=== PATIENT | female | born 1970 | race Caucasian/White ===

== ENCOUNTER 2018-01-11 20:58 | Emergency (ER) | payer MEDICAID ==
[2018-01-11 20:59] VITALS: BMI 25.7
[2018-01-11 21:11] VITALS: TEMP 98.2
--- NOTE | 2018-01-11 21:22 | ED PDOC ---
Arrival/HPI - General Chief Complaint: Substance Abuse Time Seen by Provider: 01/11/18 21:06 Historian: Patient - History of Present Illness Narrative History of Present Illness (Text): you were treated in the ED today for admitted recreational heroin use and heart burn like sensation and otherwise without any head injury/neck pain/nausea/ vomiting/headache/dizziness/difficulty breathing/chest pain/abdomen pain/ numbness/tingling/loss of limb function/pain with urination/thoughts to harm yourself or others or hallucinations. 01/11/18 21:26 Time/Duration: 1-3 hours Symptom Onset: Gradual Symptom Course: Improving Quality: Other (no pain) Activities at Onset: Rest Context: Sitting Past Medical History - Provider Review Nursing Documentation Reviewed: Yes - Travel History Have you recently traveled outside [place] w/in the past 3 mons?: No - Infectious Disease Hx of Infectious Diseases: None - Tetanus Immunization Tetanus Immunization: Unknown - Pulmonary Hx Chronic Obstructive Pulmonary Disease (COPD): Yes - Endocrine/Metabolic Hx Hyperthyroidism: Yes - Gastrointestinal Hx Gastroesophageal Reflux: Yes - Psychiatric Hx Depression: No Hx Emotional Abuse: No Hx Physical Abuse: No Hx Substance Use: Yes - Surgical History Hx Cholecystectomy: Yes - Suicidal Assessment Feels Threatened In Home Enviroment: No Family/Social History - Physician Review Nursing Documentation Reviewed: Yes Family/Social History: No Known Family HX Smoking Status: Heavy Smoker > 10 Cigarettes Daily Hx Alcohol Use: No Hx Substance Use: Yes Substance used: Heroine Amount: 5 Hx Substance Use Treatment: Yes Allergies/Home Meds Allergies/Adverse Reactions: Allergies No Known Allergies Allergy (Verified 03/14/13 23:47) Review of Systems - Review of Systems Constitutional: Normal Eyes: Normal ENT: Normal Respiratory: Normal Cardiovascular: Normal Gastrointestinal: Normal Genitourinary Female: Normal Musculoskeletal: Normal Skin: Normal Neurological: Normal Endocrine: Normal Hemo/Lymphatic: Normal Psychiatric: Normal Physical Exam Vital Signs Reviewed: Yes Vital Signs Temp Pulse Resp BP Pulse Ox 01/12/18 00:06 91 H 18 122/78 99 01/11/18 21:07 98.2 F 82 16 115/61 91 L Temperature: Afebrile Blood Pressure: Normal Pulse: Regular Respiratory Rate: Normal Appearance: Positive for: Well-Appearing, Non-Toxic, Comfortable Pain Distress: None Mental Status: Positive for: Alert and Oriented X 3 - Systems Exam Head: Present: Atraumatic, Normocephalic Pupils: Present: PERRL Extroacular Muscles: Present: EOMI Conjunctiva: Present: Normal Ears: Present: Normal Mouth: Present: Moist Mucous Membranes Pharnyx: Present: Normal Nose (External): Present: Atraumatic Nose (Internal): Present: Normal Inspection, Septal Hematoma Neck: Present: Other (no c-t-l spinal or paraspinal tenderness) Respiratory/Chest: Present: Clear to Auscultation, Good Air Exchange Cardiovascular: Present: Regular Rate and Rhythm Abdomen: No: Tenderness, Distention, Normal Bowel Sounds, Peritoneal Signs, Rebound, Guarding, McBurney's Point Tender, Rovsing's Sign Present, Hernias, Feeding Tubes, Ostomy Tubes, Mass/Organomegaly, Scars, Other Back: Present: Normal Inspection Upper Extremity: Present: Normal Inspection Lower Extremity: Present: Normal Inspection Neurological: Present: GCS=15, CN II-XII Intact, Speech Normal, Motor Func Grossly Intact Skin: Present: Warm, Normal Color Psychiatric: Present: Alert, Oriented x 3, Normal Insight, Normal Concentration Medical Decision Making ED Course and Treatment: you were treated in the ED today for admitted recreational heroin use and heart burn like sensation and otherwise without any head injury/neck pain/nausea/ vomiting/headache/dizziness/difficulty breathing/chest pain/abdomen pain/ numbness/tingling/loss of limb function/pain with urination/thoughts to harm yourself or others or hallucinations/travel/prior blood clots/prior cancer/ hormonal use. You were otherwise breathing easily, pink moist lips, talking, good strength/sensation, alert/oriented, walking easily, clear lungs, no abdomen tenderness, no fever temp 98.2, stable heart rate 82, stable breathing rate 16, stable oxygen level 91% room air, stable blood pressure 115/61 which we recommend repeat in 2-3 days primary care office to determine further treatment, you have blood tests no infection count 10, stable blood level hemoglobin 12/platelets 391, stable chemistry, except for mildly low potassium 3.4 and replaced, mildly high AST 43, heart blood test negative, urine test unclear sign of infection, test negative less than 2.39, urine drug screen opiate positive, tylenol level negative, aspirin level negative, alcohol level negative, radiology chest xray mild markings, ECG sinus rhythm, protonix, intravenous fluids, observation done in the ED with improvement, sober status, had a long discussion to stay in the hospital for further observation/care but you refused and cautioned for complications/, counselled to stop using drugs and you wanted to go home. 1. recommend if cough/sputum start azithromycin as directed for bronchitis/early pneumonia infection control. 2. Recommend follow-up primary care 1 days to review symptoms, get final urine culture report to determine further treatment, referral to detoxification clinic to stop using heroin, referral to gastroenterology clinic for elevated AST 43 to ensure no complications, referral to urology clinic for protein/blood/ ketones in urine to ensure no complications. 4. If any worsening pain, fever, chills, nausea, vomiting, difficulty breathing, numbness, loss of limb function , pain with urination or any medical condition then return to the ED. 01/12/18 01:10 Reassessment Condition: Re-examined, Improved - Lab Interpretations Lab Results: 01/11/18 21:40 01/11/18 21:40 Lab Results 01/11/18 23:55: Urine Opiates Screen Positive H, Urine Methadone Screen Negative , Ur Barbiturates Screen Negative, Ur Phencyclidine Scrn Negative, Ur Amphetamines Screen Negative, U Benzodiazepines Scrn Negative, U Oth Cocaine Metabols Negative, U Cannabinoids Screen Negative 01/11/18 23:55: Urine Color Yellow, Urine Appearance Sl cloudy, Urine pH 6.0, Ur Specific Harrells 1.025, Urine Protein 30 H, Urine Glucose (UA) Negative, Urine Ketones Trace H, Urine Blood Large H, Urine Nitrate Negative, Urine Bilirubin Negative, Urine Urobilinogen 0.2, Ur Leukocyte Esterase Trace H, Urine RBC 5 - 10, Urine WBC 1 - 3, Ur Epithelial Cells 1 - 3, Urine Bacteria Few , Hyaline Casts 0 - 2 01/11/18 21:40: Beta HCG, Quant < 2.39 01/11/18 21:40: Alcohol, Quantitative < 10 01/11/18 21:40: Salicylates < 1 L, Acetaminophen < 10.0 L 01/11/18 21:40: Sodium 139, Potassium 3.4 L, Chloride 99, Carbon Dioxide 30, Anion Gap 13, BUN 5 L, Creatinine 0.9, Est GFR ( Amer) > 60, Est GFR (Non -Af Amer) > 60, Random Glucose 107, Calcium 8.5, Magnesium 1.9, Total Bilirubin 0.3, AST 43 H, ALT 38, Alkaline Phosphatase 111, Lactate Dehydrogenase 687, Total Creatine Kinase 114, Troponin I < 0.01, Total Protein 7.2, Albumin 4.0, Globulin 3.2, Albumin/Globulin Ratio 1.3 01/11/18 21:40: PT 10.6, INR 0.93, APTT 29.7 01/11/18 21:40: WBC 10.5, RBC 4.90, Hgb 12.4, Hct 36.9, MCV 75.3 L, MCH 25.3, MCHC 33.6, RDW 15.4 H, Plt Count 391, MPV 9.2, Gran % 66.7, Lymph % (Auto) 26.5 , Converse % (Auto) 4.7, Eos % (Auto) 1.9, Baso % (Auto) 0.2, Gran # 7.01 H, Lymph # (Auto) 2.8, Converse # (Auto) 0.5, Eos # (Auto) 0.2, Baso # (Auto) 0.02 I have reviewed the lab results: Yes - RAD Interpretation Radiology Orders: 01/11/18 21:16 CHEST PORTABLE [RAD] Stat Industrial Engineer: ED Physician (cxr mild markings) - EKG Interpretation Interpreted by ED Physician: Yes (SR ) Type: 12 lead EKG Comparison: Similar to previous EKG (06/13/13) - Medication Orders Current Medication Orders: Discontinued Medications Sodium Chloride (Sodium Chloride 0.9%) 1,000 mls @ 999 mls/hr IV .Q1H1M STA Stop: 01/11/18 22:26 Last Admin: 01/11/18 21:50 Dose: 999 mls/hr eMAR Start Stop Document 01/11/18 21:50 RD (Rec: 01/11/18 21:50 RD [id number]) Intravenous Solution Start Date 01/11/18 Start Time 21:50 End Date 01/11/18 End time 22:50 Total Infusion Time 60 Pantoprazole Sodium (Protonix Inj) 40 mg IVP STAT STA Stop: 01/11/18 21:27 Last Admin: 01/11/18 21:45 Dose: 40 mg IVP Administration Document 01/11/18 21:45 RD (Rec: 01/11/18 21:46 RD [id number]) Charges for Administration # of IVP Administrations 1 Potassium Chloride (K-Dur 20 Meq Er Tab) 40 meq PO STAT STA Stop: 01/11/18 22:26 Last Admin: 01/11/18 23:30 Dose: 40 meq Disposition/Present on Arrival - Present on Arrival Any Indicators Present on Arrival: No History of DVT/PE: No History of Uncontrolled Diabetes: No Urinary Catheter: No History of Decub. Ulcer: No History Surgical Site Infection Following: None - Disposition Have Diagnosis and Disposition been Completed?: Yes Diagnosis: Heroin abuse Disposition: AGAINST MEDICAL ADVICE Disposition Time: 01:14 Patient Plan: Discharge Patient Problems: Current Active Problems Problem Status Onset Heroin abuse Acute Condition: IMPROVED Discharge Instructions (ExitCare): Drug Abuse and Drug Addiction (DC), Opioid Use Disorder Additional Instructions: you were treated in the ED today for admitted recreational heroin use and heart burn like sensation and otherwise without any head injury/neck pain/nausea/ vomiting/headache/dizziness/difficulty breathing/chest pain/abdomen pain/ numbness/tingling/loss of limb function/pain with urination/thoughts to harm yourself or others or hallucinations/travel/prior blood clots/prior cancer/ hormonal use. You were otherwise breathing easily, pink moist lips, talking, good strength/sensation, alert/oriented, walking easily, clear lungs, no abdomen tenderness, no fever temp 98.2, stable heart rate 82, stable breathing rate 16, stable oxygen level 91% room air, stable blood pressure 115/61 which we recommend repeat in 2-3 days primary care office to determine further treatment, you have blood tests no infection count 10, stable blood level hemoglobin 12/platelets 391, stable chemistry, except for mildly low potassium 3.4 and replaced, mildly high AST 43, heart blood test negative, urine test unclear sign of infection, test negative less than 2.39, urine drug screen opiate positive, tylenol level negative, aspirin level negative, alcohol level negative, radiology chest xray mild markings, ECG sinus rhythm, protonix, intravenous fluids, observation done in the ED with improvement, sober status, had a long discussion to stay in the hospital for further observation/care but you refused and cautioned for complications/, counselled to stop using drugs and you wanted to go home. 1. recommend if cough/sputum start azithromycin as directed for bronchitis/early pneumonia infection control. 2. Recommend follow-up primary care 1 days to review symptoms, get final urine culture report to determine further treatment, referral to detoxification clinic to stop using heroin, referral to gastroenterology clinic for elevated AST 43 to ensure no complications, referral to urology clinic for protein/blood/ ketones in urine to ensure no complications. 4. If any worsening pain, fever, chills, nausea, vomiting, difficulty breathing, numbness, loss of limb function , pain with urination or any medical condition then return to the ED. Prescriptions: Azithromycin [Z-Brando] 250 mg PO DAILY 5 Days #6 tab Referrals: PCP,NO [Primary Care Provider] - Follow up with primary Forms: [facility] [facility] (Romanian)
[2018-01-11] MEDS ORDERED: Sodium Chloride 0.9% 1,000 ML IV STA (21:26)
[2018-01-11 21:54] LABS: BASO # 0.02 K/mm3 (0.0-2.0); BASO % 0.2 % (0.0-3.0); EOS # 0.2 (0.0-0.7); EOS % 1.9 % (1.5-5.0); GRAN # 7.01 (1.4-6.5); GRAN % 66.7 % (50.0-68.0); HEMOGLOBIN 12.4 g/dL (12.0-16.0); LYMPH # 2.8 (1.2-3.4); LYMPH % 26.5 % (22.0-35.0); MEAN CELL VOLUME 75.3 fl (80.0-105.0); MEAN CORPUSCULAR HEMOGLOBIN 25.3 pg (25.0-35.0); MEAN CORPUSCULAR HGB CONC 33.6 g/dl (31.0-37.0); MEAN PLATELET VOLUME 9.2 fl (7.0-11.0); MONO # 0.5 (0.1-0.6); MONO % 4.7 % (1.0-6.0); RBC 4.9 10^6/uL (3.5-6.1); RED CELL DISTRIBUTION WIDTH 15.4 % (11.5-14.5); WHITE BLOOD COUNT 10.5 10^3/ul (4.5-11.0)
[2018-01-11 22:02] LABS: INR 0.93 (0.93-1.08); PARTIAL THROMBOPLASTIN TIME 29.7 Seconds (25.1-36.5); PROTHROMBIN TIME 10.6 SECONDS (9.4-12.5)
[2018-01-11 22:06] LABS: ALB/GLOB RATIO 1.3 (1.1-1.8); ALT/SGPT 38 U/L (7-56); AST/SGOT 43 U/L (14-36); BLOOD UREA NITROGEN 5 mg/dL (7-21); CALCIUM 8.5 mg/dL (8.4-10.5); GFR AFRICAN-AMERICAN > 60; GFR NON-AFRICAN AMERICAN > 60
[2018-01-11 22:07] LABS: ACETAMINOPHEN < 10.0 ug/ml (10.0-20.0); SALICYLATE < 1 mg/dL (2.0-20.0)
[2018-01-11 22:18] LABS: TROPONIN I < 0.01 ng/mL
[2018-01-11] MEDS ORDERED: Potassium Chloride 20 mEq ER Tab PO STA (22:25)
[2018-01-12 00:27] LABS: URINE APPEARANCE SL CLOUDY (CLEAR); URINE BILIRUBIN NEGATIVE (NEGATIVE); URINE BLOOD LARGE (NEGATIVE); URINE COLOR YELLOW (YELLOW); URINE GLUCOSE (UA) NEGATIVE (NEGATIVE); URINE LEUKOCYTE ESTERASE TRACE Leu/uL (NEGATIVE); URINE PROTEIN 30 mg/dL (<30 mg/dL); URINE UROBILINOGEN 0.2 E.U./dL (<1 E.U./dL)
[2018-01-12 00:37] LABS: PHENCYCLIDINE, UR NEGATIVE (NEGATIVE)
[2018-01-12 00:40] LABS: URINE BACTERIA FEW (NEG); URINE HYALINE CAST 0 - 2 /hpf
[2018-01-12 00:43] LABS: BARBITURATES, UR NEGATIVE (NEGATIVE); BENZODIAZEPINES, UR NEGATIVE (NEGATIVE); OPIATES, UR POSITIVE (NEGATIVE)
[2018-01-12 01:26] VITALS: BP 118/67; PULSE 89; RESP 17; O2SAT 93
--- NOTE | 2018-01-12 08:23 | RAD ---
HISTORY: 47yoF, overdose COMPARISON: No prior. FINDINGS: LUNGS: The lungs are well inflated and clear. PLEURA: No significant pleural effusion identified, no pneumothorax apparent. CARDIOVASCULAR: Normal. OSSEOUS STRUCTURES: No significant abnormalities. VISUALIZED UPPER ABDOMEN: Normal. OTHER FINDINGS: None. IMPRESSION: No acute findings.
--- NOTE | 2018-01-12 09:13 | CARD ---
APPROVED REPORT EKG Measurement Heart [id number] NM 130P56 [id number] <Conclusion> Sinus rhythm Nonspecific ST and T wave abnormality, increased in precordial leads since 06/13/13 ECG
== END 2018-01-12 01:27 | disposition left against medical advice (07) ==
LOC: ED 20:58
DX: F11.10 Opioid abuse, uncomplicated (principal); F17.210 Nicotine dependence, cigarettes, uncomplicated; E05.90 Thyrotoxicosis, unspecified without thyrotoxic crisis or storm; J44.9 Chronic obstructive pulmonary disease, unspecified
CPT/HCPCS: 71045; 80053; 80320; 80324; 80329; 80345; 80346; 80349; 80353; 80358; 80361; 81001; 82550; 83615; 83735; 83992; 84484; 84702; 85025; 85610; 85730; 87086; 93005; 96361; 96374; 99284; C9113; J7040

== ENCOUNTER 2018-07-20 18:43 | Emergency (ER) | payer MEDICAID ==
[2018-07-20 18:46] VITALS: BMI 25.7
--- NOTE | 2018-07-20 18:54 | ED PDOC ---
Arrival/HPI - General Chief Complaint: Substance Abuse Time Seen by Provider: 07/20/18 18:50 Historian: Patient, EMS - History of Present Illness Narrative History of Present Illness (Text): 07/20/18 18:40 47 year old female, with past history of opiod abuse and heroin abuse, presents to the Emergency department via EMS s/p heroin overdose approximately 30 minutes prior to arrival. Upon arrival to the Emergency department, patient was given narcan with spontaneous return to baseline. Patient admits to snorting heroin today in the bus with no suicidal intention. Patient denies any suicidal ideation or homicidal ideation. Patient denies any somatic complaints. Patient denies any fevers, chills, headache, dizziness, chest pain, shortness of breath, dyspnea on exertion, cough, abdominal pain, nausea, vomiting, diarrhea, back pain, neck pain, or any other complaint. Time/Duration: Prior to Arrival Symptom Onset: Gradual Symptom Course: Resolved Activities at Onset: Light Context: Other (Bus) Past Medical History - Provider Review Nursing Documentation Reviewed: Yes - Infectious Disease Hx of Infectious Diseases: None - Tetanus Immunization Tetanus Immunization: Unknown - Pulmonary Hx Chronic Obstructive Pulmonary Disease (COPD): Yes - Endocrine/Metabolic Hx Hyperthyroidism: Yes - Gastrointestinal Hx Gastroesophageal Reflux: Yes - Psychiatric Hx Depression: No Hx Emotional Abuse: No Hx Physical Abuse: No Hx Substance Use: Yes - Surgical History Hx Cholecystectomy: Yes - Suicidal Assessment Feels Threatened In Home Enviroment: No Family/Social History - Physician Review Nursing Documentation Reviewed: Yes Family/Social History: Unknown Family HX Smoking Status: Heavy Smoker > 10 Cigarettes Daily Hx Alcohol Use: No Hx Substance Use: Yes Substance used: Heroine Amount: 5 Hx Substance Use Treatment: Yes Allergies/Home Meds Allergies/Adverse Reactions: Allergies No Known Allergies Allergy (Verified 03/14/13 23:47) Review of Systems - Physician Review All systems were reviewed & negative as marked: Yes - Review of Systems Constitutional: absent: Fevers Respiratory: absent: SOB, Cough Cardiovascular: absent: Chest Pain Gastrointestinal: absent: Abdominal Pain, Diarrhea, Nausea, Vomiting Musculoskeletal: absent: Back Pain, Neck Pain Neurological: absent: Headache, Dizziness Psychiatric: absent: Suicidal Ideation Physical Exam Temperature: Afebrile Blood Pressure: Normal Pulse: Regular Respiratory Rate: Normal Appearance: Positive for: Well-Appearing, Non-Toxic, Comfortable Pain Distress: None Mental Status: Positive for: Alert and Oriented X 3 - Systems Exam Head: Present: Atraumatic, Normocephalic Pupils: Present: PERRL Extroacular Muscles: Present: EOMI Conjunctiva: Present: Normal Ears: Present: Normal Mouth: Present: Moist Mucous Membranes, Normal Lips (residual white powder on right lip) Pharnyx: Present: Normal. No: ERYTHEMA, EXUDATE Nose (External): Present: Atraumatic Nose (Internal): Present: Normal Inspection. No: Septal Hematoma Neck: Present: Normal Range of Motion. No: Meningeal Signs, MIDLINE TENDERNESS Respiratory/Chest: Present: Clear to Auscultation, Good Air Exchange. No: Respiratory Distress, Accessory Muscle Use Cardiovascular: Present: Regular Rate and Rhythm, Normal S1, S2. No: Murmurs Abdomen: No: Tenderness, Distention, Peritoneal Signs Back: Present: Normal Inspection Upper Extremity: Present: Normal Inspection, Normal ROM, NORMAL PULSES. No: Cyanosis, Edema, Tenderness Lower Extremity: Present: Normal Inspection. No: Edema, Cyanosis Neurological: Present: GCS=15, CN II-XII Intact, Speech Normal, Motor Func Grossly Intact, Normal Sensory Function, Normal Cerebellar Funct, Gait Normal Skin: Present: Warm, Dry, Normal Color. No: Rashes Psychiatric: Present: Alert, Oriented x 3, Normal Insight, Normal Concentration, Normal Affect Medical Decision Making ED Course and Treatment: 07/20/18 18:45 Impression: 47 year old female presents to the Emergency department s/p heroin overdose. Differential Diagnosis included but are not limited to: Heroin overdose Plan: -- Narcan -- Reassess and disposition Prior Visits: Notes and results from previous visits were reviewed. Progress Notes: EKG: Ordered, reviewed, and independently interpreted the EKG. Rate : 96 BPM Rhythm : NSR Interpretation : No STEMI. 07/20/18 20:17 Pt remains w/ normal neuro exam, no signs of trauma, stable gait, in NAD with VSS clear for d/c home - EKG Interpretation Interpreted by ED Physician: Yes Type: 12 lead EKG - Scribe Statement The provider has reviewed the documentation as recorded by the Scribe Phani Daley. All medical record entries made by the Scribe were at my direction and personally dictated by me. I have reviewed the chart and agree that the record accurately reflects my personal performance of the history, physical exam, medical decision making, and the department course for this patient. I have also personally directed, reviewed, and agree with the discharge instructions and disposition. Disposition/Present on Arrival - Present on Arrival Any Indicators Present on Arrival: No History of DVT/PE: No History of Uncontrolled Diabetes: No Urinary Catheter: No History Surgical Site Infection Following: None - Disposition Have Diagnosis and Disposition been Completed?: Yes Diagnosis: Opiate overdose Disposition: HOME/ ROUTINE Disposition Time: 20:18 Patient Problems: Current Active Problems Problem Status Onset Opiate overdose Acute Condition: GOOD Discharge Instructions (ExitCare): Narcotic Overdose (DC) Additional Instructions: Stop using Heroin. It is bad for you and can be lethal. SOLOMON LAGUNAS, thank you for letting us take care of you today. Your provider was Kemar Antunez and you were treated for overdose. The emergency medical care you received today was directed at your acute symptoms. If you were prescribed any medication, please fill it and take as directed. It may take several days for your symptoms to resolve. Return to the Emergency Department if your symptoms worsen, do not improve, or if you have any other problems. Please contact your doctor or call one of the physicians/clinics you have been referred to that are listed on the Patient Visit Information form that is included in your discharge packet. Bring any paperwork you were given at discharge with you along with any medications you are taking to your follow up visit. Our treatment cannot replace ongoing medical care by a primary care provider outside of the emergency department. Thank you for allowing the [facility] team to be part of your care today. If you had an X-Ray or CT scan: A Radiologist will review the ED reading if any change in treatment is needed we will contact you. If you had a blood, urine, or wound culture: It will take several days for the results, if any change in treatment is needed we will contact you. If you had an STI test: It will take 48 hours for the results. Please call after 1 week if you have not heard back. Referrals: Yasmine Seals MD [Medical Doctor] - Follow up with primary [facility] [Outside] - Follow up with primary [facility] [Outside] - Follow up with primary Forms: [employer] (Bermudian)
[2018-07-20 19:42] VITALS: RESP 18; TEMP 98.2
[2018-07-21 03:52] VITALS: BP 115/70; PULSE 74; O2SAT 100
--- NOTE | 2018-07-21 10:13 | CARD ---
APPROVED REPORT Date of service: 07/20/2018 EKG Measurement Heart [id number] <Conclusion> Normal sinus rhythm Left ventricular hypertrophy STTW changes c/w ischemia No change
== END 2018-07-20 20:30 | disposition home or self-care (01) ==
LOC: ED 18:43
DX: T40.1X1A Poisoning by heroin, accidental (unintentional), initial encounter (principal); Y92.811 Bus as the place of occurrence of the external cause; E05.90 Thyrotoxicosis, unspecified without thyrotoxic crisis or storm; F17.210 Nicotine dependence, cigarettes, uncomplicated; J44.9 Chronic obstructive pulmonary disease, unspecified

== ENCOUNTER 2018-08-30 22:42 | Emergency (ER) | payer MEDICAID ==
[2018-08-30 22:50] VITALS: BMI 34.0
[2018-08-30 23:07] VITALS: BP 122/77; PULSE 71; RESP 18; TEMP 98.7; O2SAT 97
--- NOTE | 2018-08-30 23:09 | ED PDOC ---
Arrival/HPI - General Chief Complaint: Substance Abuse Time Seen by Provider: 08/30/18 22:51 Historian: Patient - History of Present Illness Narrative History of Present Illness (Text): 08/30/18 23:08 Anna Valdes is a 47 year old female, whose past medical history includes substance abuse and hypertension, who presents to the Emergency department brought in by EMS status post [place]. Patient admits to snorting heroin this evening and daughter states patient regularly uses heroin recreationally. Patient also reports lower back pain, denies any trauma or fall. Patient denies any chest pain, shortness of breath, nausea, vomiting, or any other complaints. Symptom Onset: Gradual Symptom Course: Unchanged Activities at Onset: Light Context: Home Past Medical History - Provider Review Nursing Documentation Reviewed: Yes - Infectious Disease Hx of Infectious Diseases: None - Tetanus Immunization Tetanus Immunization: Unknown - Cardiac Hx Cardiac Disorders: No - Pulmonary Hx Chronic Obstructive Pulmonary Disease (COPD): Yes - Endocrine/Metabolic Hx Hyperthyroidism: Yes - Gastrointestinal Hx Gastroesophageal Reflux: Yes - Psychiatric Hx Depression: No Hx Emotional Abuse: No Hx Physical Abuse: No Hx Substance Use: Yes - Surgical History Hx Cholecystectomy: Yes - Anesthesia Hx Anesthesia: No - Suicidal Assessment Feels Threatened In Home Enviroment: No Family/Social History - Physician Review Nursing Documentation Reviewed: Yes Family/Social History: Unknown Family HX Smoking Status: Heavy Smoker > 10 Cigarettes Daily Hx Alcohol Use: No Hx Substance Use: Yes Substance used: Heroine Amount: 5 Hx Substance Use Treatment: Yes Allergies/Home Meds Allergies/Adverse Reactions: Allergies No Known Allergies Allergy (Verified 03/14/13 23:47) Review of Systems - Physician Review All systems were reviewed & negative as marked: Yes - Review of Systems Constitutional: Normal. absent: Fevers Eyes: Normal ENT: Normal Respiratory: Normal. absent: SOB, Cough Cardiovascular: Normal. absent: Chest Pain Gastrointestinal: Normal. absent: Abdominal Pain, Diarrhea, Nausea, Vomiting Genitourinary Female: Normal. absent: Dysuria, Frequency, Hematuria, Urine Output Changes Musculoskeletal: Back Pain. absent: Neck Pain Skin: Normal. absent: Rash Neurological: Normal. absent: Headache, Dizziness Endocrine: Normal Hemo/Lymphatic: Normal Psychiatric: Other (+heroin overdose) Physical Exam Vital Signs Reviewed: Yes Vital Signs Temp Pulse Resp BP Pulse Ox 08/30/18 23:06 98.7 F 71 18 122/77 97 Temperature: Afebrile Blood Pressure: Normal Pulse: Regular Respiratory Rate: Normal Appearance: Positive for: Well-Appearing, Non-Toxic, Comfortable Pain Distress: None Mental Status: Positive for: other (Drowsy but arousable) - Systems Exam Head: Present: Atraumatic, Normocephalic Pupils: Present: PERRL Extroacular Muscles: Present: EOMI Conjunctiva: Present: Normal Mouth: Present: Moist Mucous Membranes Neck: Present: Normal Range of Motion Respiratory/Chest: Present: Clear to Auscultation, Good Air Exchange. No: Respiratory Distress, Accessory Muscle Use Cardiovascular: Present: Regular Rate and Rhythm, Normal S1, S2. No: Murmurs Abdomen: No: Tenderness, Distention, Peritoneal Signs Back: Present: Normal Inspection Upper Extremity: Present: Normal Inspection. No: Cyanosis, Edema Lower Extremity: Present: Normal Inspection. No: Edema Neurological: Present: GCS=15, CN II-XII Intact, Speech Normal Skin: Present: Warm, Dry, Normal Color. No: Rashes Psychiatric: No: Alert (Drowsy but arousable) Medical Decision Making ED Course and Treatment: 08/30/18 23:08 Impression: 47 year old female brought in by EMS status post overdose. Pt complaining of lower back pain, no hx of recent trauma. Plan: -- Labs, alcohol level -- Urine drug screen -- Narcan -- XR Lumbar Spine -- Reassess and disposition Progress Notes: 08/31/18 00:11 Notified by RN, pt eloped from Emergency department. - Lab Interpretations I have reviewed the lab results: Yes - Scribe Statement The provider has reviewed the documentation as recorded by the Enrico Luna Provider Scribe Attestation: All medical record entries made by the Scribe were at my direction and personally dictated by me. I have reviewed the chart and agree that the record accurately reflects my personal performance of the history, physical exam, medical decision making, and the department course for this patient. I have also personally directed, reviewed, and agree with the discharge instructions and disposition. Disposition/Present on Arrival - Present on Arrival Any Indicators Present on Arrival: No History of DVT/PE: No History of Uncontrolled Diabetes: No Urinary Catheter: No History of Decub. Ulcer: No History Surgical Site Infection Following: None - Disposition Have Diagnosis and Disposition been Completed?: Yes Diagnosis: Drug abuse, Back pain Disposition: ELOPEMENT - ER ONLY Disposition Time: 00:15 Condition: STABLE Referrals: Jacinta Manzano DO [Primary Care Provider] - Follow up with primary Forms: T[employer]ril (Omani)
[2018-08-30] MEDS ORDERED: Naloxone 0.4 mg/ml Inj (Adult) IVP STA (23:10)
[2018-08-30] MEDS ORDERED: Naloxone 0.4 mg/ml Inj (Adult) ONE (23:14)
[2018-08-30 23:49] LABS: HEMOGLOBIN 13.7 g/dL (12.0-16.0); MEAN CELL VOLUME 78.3 fl (80.0-105.0); MEAN CORPUSCULAR HGB CONC 34.4 g/dl (31.0-37.0); MEAN PLATELET VOLUME 9.3 fl (7.0-11.0); RBC 5.08 10^6/uL (3.5-6.1); RED CELL DISTRIBUTION WIDTH 15.1 % (11.5-14.5)
[2018-08-30 23:56] LABS: BENZODIAZEPINES, UR NEGATIVE (NEGATIVE)
[2018-08-31 00:01] LABS: ALB/GLOB RATIO 1.2 (1.1-1.8); ALBUMIN 4.1 g/dL (3.0-4.8); ALT/SGPT 23 U/L (7-56); AST/SGOT 43 U/L (14-36); BLOOD UREA NITROGEN 10 mg/dL (7-21); CALCIUM 8.9 mg/dL (8.4-10.5); GFR NON-AFRICAN AMERICAN 59
[2018-08-31 00:18] LABS: BARBITURATES, UR NEGATIVE (NEGATIVE); OPIATES, UR POSITIVE (NEGATIVE); PHENCYCLIDINE, UR NEGATIVE (NEGATIVE)
--- NOTE | 2018-08-31 11:40 | CARD ---
APPROVED REPORT Date of service: 08/30/2018 EKG Measurement Heart [id number] <Conclusion> Normal sinus rhythm Normal Electrocardiogram
== END 2018-08-31 00:23 | disposition left against medical advice (07) ==
LOC: ED 22:42
DX: M54.5 Low back pain (principal); F19.10 Other psychoactive substance abuse, uncomplicated; F17.210 Nicotine dependence, cigarettes, uncomplicated; I10 Essential (primary) hypertension

== ENCOUNTER 2018-09-12 17:19 | Observation (INO) | payer MEDICAID ==
[2018-09-12 17:19] VITALS: BMI 34.0
--- NOTE | 2018-09-12 17:26 | ED PDOC ---
Arrival/HPI - General Historian: Patient, EMS - History of Present Illness Narrative History of Present Illness (Text): 09/12/18 17:26 48 y/o female, pmh including htn, psychiatric including heroine abuse, nkda, c/o heroine intoxication x 1 hour. Pt. was found heroine intoxicated with 2 bags at home, self admitted, found in the bathroom standing, placed her on the chair and the ambulance/police called, gave narcan which she woke up immediately, no fall or trauma except she vomited when she woke up, FS 240s in the ER, no urinary or bowel incontinence or retention, no numbness or tingling, no other medical or psychological complaints. Past Medical History - Provider Review Nursing Documentation Reviewed: Yes - Infectious Disease Hx of Infectious Diseases: None - Tetanus Immunization Tetanus Immunization: Unknown - Cardiac Hx Cardiac Disorders: No - Pulmonary Hx Chronic Obstructive Pulmonary Disease (COPD): Yes - Endocrine/Metabolic Hx Hyperthyroidism: Yes - Gastrointestinal Hx Gastroesophageal Reflux: Yes - Psychiatric Hx Depression: No Hx Emotional Abuse: No Hx Physical Abuse: No Hx Substance Use: Yes - Surgical History Hx Cholecystectomy: Yes - Anesthesia Hx Anesthesia: No - Suicidal Assessment Feels Threatened In Home Enviroment: No Family/Social History - Physician Review Nursing Documentation Reviewed: Yes Family/Social History: Unknown Family HX Smoking Status: Heavy Smoker > 10 Cigarettes Daily Hx Alcohol Use: No Hx Substance Use: Yes Substance used: Heroine Amount: 5 Hx Substance Use Treatment: Yes Allergies/Home Meds Allergies/Adverse Reactions: Allergies No Known Allergies Allergy (Verified 03/14/13 23:47) Home Medications: Home Meds Medication Instructions Recorded Confirmed Clonazepam [Klonopin] 2 mg PO DAILY 09/12/18 09/12/18 DULoxetine [Cymbalta] 60 mg PO DAILY 09/12/18 09/12/18 Ergocalciferol (Vitamin D2) 50,000 unit PO QWK 09/12/18 09/12/18 [Vitamin D2] Gabapentin [Neurontin] 600 mg PO DAILY 09/12/18 09/12/18 Omeprazole 10 mg PO DAILY 09/12/18 09/12/18 amLODIPine [Norvasc] 10 mg PO DAILY 09/12/18 09/12/18 Review of Systems - Review of Systems Constitutional: absent: Fatigue, Fevers Eyes: absent: Vision Changes ENT: absent: Hearing Changes Respiratory: absent: SOB, Cough Cardiovascular: absent: Chest Pain Gastrointestinal: Nausea, Vomiting. absent: Abdominal Pain, Diarrhea Skin: absent: Rash, Pruritis Neurological: absent: Headache, Dizziness Psychiatric: absent: Anxiety, Depression, Suicidal Ideation Physical Exam - Systems Exam Head: Present: Atraumatic, Normocephalic. No: Tenderness, Contusion, Swelling, Ecchymosis, Abrasion, Laceration, Other Pupils: Present: Pinpoint Extroacular Muscles: Present: EOMI Conjunctiva: Present: Normal Ears: Present: Normal, NORMAL TM, Normal Canal Mouth: Present: Moist Mucous Membranes Pharnyx: No: ERYTHEMA, EXUDATE, TONSILS ENLARGED Nose (External): Present: Atraumatic. No: Abrasion Nose (Internal): Present: Normal Inspection, No Active Bleeding. No: Rhinorrhea, Septal Hematoma, Epistaxis Neck: Present: Normal Range of Motion, Trachea Midline. No: MIDLINE TENDERNESS, Paraspinal Tenderness, Lymphadenopathy Respiratory/Chest: Present: Clear to Auscultation, Good Air Exchange. No: Respiratory Distress, Accessory Muscle Use, Wheezes, Decreased Breath Sounds, Rales, Retracting, Rhonchi, Tachypneic, Tender to Palpation Cardiovascular: Present: Regular Rate and Rhythm, Normal S1, S2. No: Murmurs Abdomen: No: Tenderness, Distention, Peritoneal Signs, Rebound, Guarding Back: Present: Normal Inspection. No: CVA Tenderness, Midline Tenderness, Paraspinal Tenderness, Pain with Leg Raise, Decubitus Ulcer Upper Extremity: Present: Normal Inspection, Normal ROM, NORMAL PULSES, Neurovascularly Intact. No: Cyanosis, Edema, Tenderness, Swelling, Deformity Lower Extremity: Present: Normal Inspection, NORMAL PULSES, Normal ROM, Neurovascularly Intact, Capillary Refill < 2 s. No: Edema, Tenderness, Swelling, Deformity Neurological: Present: GCS=15, CN II-XII Intact, Speech Normal, Motor Func Grossly Intact, Memory Normal Skin: Present: Warm, Dry, Normal Color. No: Rashes Psychiatric: Present: Alert, Oriented x 3, Normal Insight, Normal Concentration Medical Decision Making ED Course and Treatment: 09/12/18 17:33 -Labs -EKG -IVF/zofran -Xray/CT -security monitor -Observe and reassess 09/12/18 19:40 -EKG: NSR @ 75 BPM, no ST elevation or depression, no T wave inversion, LVH noted, -Beta hcg is negative for . -CT head No acute intracranial abnormality. -CXR Minimal infiltrate and/or atelectasis at the lung bases. -Labs show no acuter findings except wbc 15.8 -Mag 2.3, normal bun/creatine -CPK within normal limit -Trop is negative -Salicylate/acetaminophen/alcohol: -UA show +UTI, IV rocephine ordered -UDS is +opiate -IV rocephine/azithromcin/clindamycin ordered for Community acquired pneumonia vs. aspiration/UTI, leukocytosis, will admit her. She will need psychiatric evaluation as well for heroine abuse and overdose, ESR/CRP/Procalcitonin orde red. 09/12/18 19:49 -I spoke to the patient about the lab/radiology results and she agreed to be admitted -I spoke to the admitting physician Dr. Thompson/medical service technician, discussed about the labs/radiology result, will come to evaluate and admit the patient. - RAD Interpretation Radiology Orders: CT head: . EXAM: CT Head without Intravenous Contrast. CLINICAL HISTORY: HEAD INJURY TECHNIQUE: Axial computed tomography images of the head/brain without intravenous contrast. 984.00 mGy-cm COMPARISON: None provided. FINDINGS: BRAIN No acute intraparenchymal hemorrhage. No mass lesion. No CT evidence for acute territorial infarct. No midline shift or extra-axial collections. VENTRICLES: No hydrocephalus. ORBITS: The orbits are unremarkable. SINUSES AND MASTOIDS: The paranasal sinuses and mastoid air cells are clear. BONES: No fracture. SOFT TISSUES: Unremarkable. IMPRESSION: No acute intracranial abnormality. Electronically signed on Sep 12, 2018 6:49:34 PM EST by: Damián Kearns M.D., Certified by [employer], Diagnostic Radiology Chest xray: EXAM: CR Chest, 2 View. CLINICAL HISTORY: Cough COMPARISON: None provided. FINDINGS: LUNGS: Minimal infiltrate and/or atelectasis at the lung bases. PLEURAL SPACES: No evidence of pleural effusion or pneumothorax. MEDIASTINUM: The cardiomediastinal silhouette is within normal limits. BONES: No aggressive appearing osseous lesion seen. IMPRESSION: Minimal infiltrate and/or atelectasis at the lung bases. Electronically signed on Sep 12, 2018 7:34:14 PM EST by: Damián Kearns M.D., Certified by [employer], Diagnostic Radiology Scooper: Radiologist - EKG Interpretation EKG Interpretation (Text): 09/12/18 18:01 -EKG: NSR @ 75 BPM, no ST elevation or depression, no T wave inversion, LVH noted, Interpreted by ED Physician: Yes Type: 12 lead EKG - PA / LAST PULLER / Resident Statement / has reviewed & agrees with the documentation as recorded. Disposition/Present on Arrival - Present on Arrival Any Indicators Present on Arrival: No History of DVT/PE: No History of Uncontrolled Diabetes: No Urinary Catheter: No History of Decub. Ulcer: No History Surgical Site Infection Following: None - Disposition Have Diagnosis and Disposition been Completed?: Yes Diagnosis: UTI (urinary tract infection), Leukocytosis, Pneumonia, Overdose, Vomiting Disposition: HOSPITALIZED Disposition Time: 19:42 Patient Plan: Admission, Observation Patient Problems: Current Active Problems Problem Status Onset UTI (urinary tract infection) Acute Leukocytosis Acute Pneumonia Acute Overdose Acute Vomiting Acute Condition: STABLE Referrals: Jacinta Manzano DO [Primary Care Provider] - Follow up with primary
[2018-09-12 17:55] LABS: BASO # 0.03 K/mm3 (0.0-2.0); BASO % 0.2 % (0.0-3.0); EOS # 0.4 (0.0-0.7); EOS % 2.3 % (1.5-5.0); GRAN # 7.37 (1.4-6.5); GRAN % 46.7 % (50.0-68.0); HEMOGLOBIN 14.4 g/dL (12.0-16.0); LYMPH # 7.5 (1.2-3.4); LYMPH % 47.6 % (22.0-35.0); MEAN CELL VOLUME 80.8 fl (80.0-105.0); MEAN CORPUSCULAR HEMOGLOBIN 27.2 pg (25.0-35.0); MEAN CORPUSCULAR HGB CONC 33.6 g/dl (31.0-37.0); MEAN PLATELET VOLUME 9.4 fl (7.0-11.0); MONO # 0.5 (0.1-0.6); MONO % 3.2 % (1.0-6.0); RBC 5.3 10^6/uL (3.5-6.1); RED CELL DISTRIBUTION WIDTH 15.8 % (11.5-14.5); WHITE BLOOD COUNT 15.8 10^3/uL (4.5-11.0)
[2018-09-12 18:03] LABS: SALICYLATE < 1 mg/dL (2.0-20.0)
[2018-09-12] MEDS: Sodium Chloride 0.9% 1,000 ML IV SCH ×2 (18:03→23:48)
[2018-09-12 18:04] LABS: ACETAMINOPHEN < 10.0 ug/ml (10.0-20.0); ALB/GLOB RATIO 1.2 (1.1-1.8); ALBUMIN 4.1 g/dL (3.0-4.8); ALT/SGPT 40 U/L (7-56); AST/SGOT 46 U/L (14-36); BLOOD UREA NITROGEN 12 mg/dL (7-21); CALCIUM 8.9 mg/dL (8.4-10.5); GFR NON-AFRICAN AMERICAN 40
[2018-09-12 18:23] LABS: URINE BILIRUBIN NEGATIVE (NEGATIVE); URINE BLOOD NEGATIVE (NEGATIVE); URINE GLUCOSE (UA) NEGATIVE (NEGATIVE); URINE LEUKOCYTE ESTERASE NEGATIVE Leu/uL (NEGATIVE); URINE PROTEIN 100 mg/dL (<30 mg/dL); URINE UROBILINOGEN 0.2 E.U./dL (<1 E.U./dL)
[2018-09-12 18:30] LABS: URINE APPEARANCE SL CLOUDY (CLEAR); URINE COLOR YELLOW (YELLOW)
[2018-09-12 18:34] LABS: URINE BACTERIA MOD (NEG); URINE RBC NEGATIVE /hpf (0-2)
[2018-09-12 19:21] LABS: BENZODIAZEPINES, UR NEGATIVE (NEGATIVE)
[2018-09-12 19:30] LABS: TROPONIN I < 0.01 ng/mL
[2018-09-12 19:32] LABS: BARBITURATES, UR NEGATIVE (NEGATIVE); OPIATES, UR POSITIVE (NEGATIVE); PHENCYCLIDINE, UR NEGATIVE (NEGATIVE)
[2018-09-12] MEDS ORDERED: cefTRIAXone 1 gm 1 GM/100 ML BAG IVPB STA (19:38)
[2018-09-12] MEDS ORDERED: Azithromycin 500MG/NS 250ml 500 MG/250 ML BAG IVPB STA (19:38)
--- NOTE | 2018-09-12 21:24 | CP.PCM.HP ---
<Claude Darling - Last Filed: 09/12/18 21:57> History of Present Illness - History of Present Illness History of Present Illness: Claude Darling PGY1, Internal Medicine Resident History and Physical for Dr Thompson Pt is 48 yo female, with a PMH of HTN, opiate abuse/ overdose, depression, anxiety who presents via EMS after being found after "snorting 2 bags of heroin." Pt states she only remembers going home and going to the bathroom to use heroin. The next thing she remembers is waking up in the hospital after Narcan was administered. Pt states she has been using heroin for the past 25 yea rs, she states she has overdosed approximately 6 times. Pt states she was nauseous and vomited earlier. Pt denies chest pain, SOB, headache, visual changes, diaphoresis. A 12 point ROS was obtained and added to the HPI where appropriate. PMH: opiate abuse, depression, anxiety PSH: cholecystectomy, appendectomy, "thyroid goiter surgery" FH: mother 49, overdose, HIV. Father 74 healthy SH: Tobacco 1ppd for 20 years, denies alcohol, admits to IVDA heroin abuse for the past 25 years Allergies: NKDA Home meds: cymbalta 60daily, klonipin 2mg BID, Visteril prn, omeprazole 40, gabapentin 600TID, Norvasc 10daily Present on Admission - Present on Admission Any Indicators Present on Admission: No Review of Systems - Review of Systems Review of Systems: a 12 point ROS was obtained and added to the HPI where appropriate Past Patient History - Infectious Disease Hx of Infectious Diseases: None - Tetanus Immunizations Tetanus Immunization: Unknown - Past Social History Smoking Status: Heavy Smoker > 10 Cigarettes Daily - CARDIAC Hx Cardiac Disorders: No - PULMONARY Hx Chronic Obstructive Pulmonary Disease (COPD): Yes - ENDOCRINE/METABOLIC Hx Hyperthyroidism: Yes - GASTROINTESTINAL Hx Gastroesophageal Reflux: Yes - PSYCHIATRIC Hx Depression: No Hx Emotional Abuse: No Hx Physical Abuse: No Hx Substance Use: Yes - SURGICAL HISTORY Hx Cholecystectomy: Yes - ANESTHESIA Hx Anesthesia: No Meds Allergies/Adverse Reactions: Allergies Allergy/AdvReac Type Severity Reaction Status Date / Time No Known Allergies Allergy Verified 03/14/13 23:47 Physical Exam - Constitutional Appears: No Acute Distress - Head Exam Head Exam: ATRAUMATIC, NORMOCEPHALIC - Eye Exam Eye Exam: EOMI, Normal appearance, PERRL - ENT Exam ENT Exam: Mucous Membranes Moist - Respiratory Exam Respiratory Exam: Clear to Auscultation Bilateral, NORMAL BREATHING PATTERN. absent: Accessory Muscle Use, Wheezes, Respiratory Distress - Cardiovascular Exam Cardiovascular Exam: RRR, +S1, +S2. absent: Diastolic murmur, Systolic Murmur - GI/Abdominal Exam GI & Abdominal Exam: Normal Bowel Sounds, Soft - Extremities Exam Extremities exam: Positive for: full ROM, pedal pulses present. Negative for: calf tenderness, pedal edema - Neurological Exam Neurological exam: Oriented x3 - Psychiatric Exam Psychiatric exam: Normal Affect, Normal Mood - Skin Skin Exam: Dry, Normal Color, Warm Results - Vital Signs Recent Vital Signs: Last Vital Signs Temp 98 F 09/12/18 17:21 Pulse 77 09/12/18 17:21 Resp 19 09/12/18 17:21 BP 103/62 09/12/18 17:58 Pulse Ox 97 09/12/18 17:21 - Labs Result Diagrams: 09/12/18 17:39 09/12/18 17:39 Labs: Laboratory Results - last 24 hr 09/12/18 09/12/18 09/12/18 17:30 17:39 17:39 WBC RBC Hgb Hct MCV MCH MCHC RDW Plt Count MPV Gran % Lymph % (Auto) [place] % (Auto) Eos % (Auto) Baso % (Auto) Gran # Lymph # (Auto) [place] # (Auto) Eos # (Auto) Baso # (Auto) ESR Sodium 138 Potassium 4.0 Chloride 106 Carbon Dioxide 17 L Anion Gap 19 BUN 12 Creatinine 1.4 H Est GFR ( Amer) 49 Est GFR (Non-Af Amer) 40 POC Glucose (mg/dL) 240 H Random Glucose 208 H Calcium 8.9 Magnesium 2.3 H Total Bilirubin 0.5 AST 46 H ALT 40 Alkaline Phosphatase 84 Troponin I < 0.01 Total Protein 7.6 Albumin 4.1 Globulin 3.4 Albumin/Globulin Ratio 1.2 Beta HCG, Quant Urine Color Urine Appearance Urine pH Ur Specific [place] Urine Protein Urine Glucose (UA) Urine Ketones Urine Blood Urine Nitrate Urine Bilirubin Urine Urobilinogen Ur Leukocyte Esterase Urine RBC Urine WBC Ur Epithelial Cells Urine Bacteria Salicylates < 1 L Urine Opiates Screen Urine Methadone Screen Acetaminophen < 10.0 L Ur Barbiturates Screen Ur Phencyclidine Scrn Ur Amphetamines Screen U Benzodiazepines Scrn U Oth Cocaine Metabols U Cannabinoids Screen Alcohol, Quantitative 09/12/18 09/12/18 09/12/18 17:39 17:39 17:39 WBC 15.8 H RBC 5.30 Hgb 14.4 Hct 42.8 MCV 80.8 MCH 27.2 MCHC 33.6 RDW 15.8 H Plt Count 371 MPV 9.4 Gran % 46.7 L Lymph % (Auto) 47.6 H [place] % (Auto) 3.2 Eos % (Auto) 2.3 Baso % (Auto) 0.2 Gran # 7.37 H Lymph # (Auto) 7.5 H [place] # (Auto) 0.5 Eos # (Auto) 0.4 Baso # (Auto) 0.03 ESR 15 Sodium Potassium Chloride Carbon Dioxide Anion Gap BUN Creatinine Est GFR ( Amer) Est GFR (Non-Af Amer) POC Glucose (mg/dL) Random Glucose Calcium Magnesium Total Bilirubin AST ALT Alkaline Phosphatase Troponin I Total Protein Albumin Globulin Albumin/Globulin Ratio Beta HCG, Quant < 2.39 Urine Color Urine Appearance Urine pH Ur Specific [place] Urine Protein Urine Glucose (UA) Urine Ketones Urine Blood Urine Nitrate Urine Bilirubin Urine Urobilinogen Ur Leukocyte Esterase Urine RBC Urine WBC Ur Epithelial Cells Urine Bacteria Salicylates Urine Opiates Screen Urine Methadone Screen Acetaminophen Ur Barbiturates Screen Ur Phencyclidine Scrn Ur Amphetamines Screen U Benzodiazepines Scrn U Oth Cocaine Metabols U Cannabinoids Screen Alcohol, Quantitative < 10 09/12/18 09/12/18 18:19 18:19 WBC RBC Hgb Hct MCV MCH MCHC RDW Plt Count MPV Gran % Lymph % (Auto) [place] % (Auto) Eos % (Auto) Baso % (Auto) Gran # Lymph # (Auto) [place] # (Auto) Eos # (Auto) Baso # (Auto) ESR Sodium Potassium Chloride Carbon Dioxide Anion Gap BUN Creatinine Est GFR ( Amer) Est GFR (Non-Af Amer) POC Glucose (mg/dL) Random Glucose Calcium Magnesium Total Bilirubin AST ALT Alkaline Phosphatase Troponin I Total Protein Albumin Globulin Albumin/Globulin Ratio Beta HCG, Quant Urine Color Yellow Urine Appearance Sl cloudy Urine pH 6.0 Ur Specific [place] >= 1.030 Urine Protein 100 H Urine Glucose (UA) Negative Urine Ketones Negative Urine Blood Negative Urine Nitrate Negative Urine Bilirubin Negative Urine Urobilinogen 0.2 Ur Leukocyte Esterase Negative Urine RBC Negative Urine WBC 5 - 10 Ur Epithelial Cells 4 - 5 Urine Bacteria Mod Salicylates Urine Opiates Screen Positive H Urine Methadone Screen Negative Acetaminophen Ur Barbiturates Screen Negative Ur Phencyclidine Scrn Negative Ur Amphetamines Screen Negative U Benzodiazepines Scrn Negative U Oth Cocaine Metabols Negative U Cannabinoids Screen Negative Alcohol, Quantitative Assessment & Plan - Assessment and Plan (Free Text) Assessment: Pt is 48 yo female, with a PMH of HTN, opiate abuse/ overdose, depression, anxiety who presents via EMS after being found after "snorting 2 bags of heroin." Plan: Heroin Overdose - clonidine 0.1 TID - fall precautions - seizure precautions - benadryl 25 PO q6h Aspiration PNA - zithromax - rocephin MAGNOLIA - IVF - random CR - random Na HTN - restart home amlodipine 10 History of Goiter - TSH Depression/ Anxiety - restart home klonopin 2mg BID Ppx/ Diet - pantoprazole - lovenox - regular diet Pt seen, examined, assessment and plan discussed with Dr Donna Darling PGY1, Internal Medicine Resident - Date & Time Date: 09/12/18 Time: 21:33 <Lavinia Thompson - Last Filed: 09/13/18 06:54> Results - Vital Signs Recent Vital Signs: Last Vital Signs Temp 98 F 09/12/18 17:21 Pulse 77 09/12/18 17:21 Resp 19 09/13/18 00:43 BP 103/62 09/12/18 17:58 Pulse Ox 97 09/12/18 17:21 - Labs Result Diagrams: 09/12/18 17:39 09/12/18 17:39 Labs: Laboratory Results - last 24 hr 09/12/18 09/12/18 09/12/18 17:30 17:39 17:39 WBC RBC Hgb Hct MCV MCH MCHC RDW Plt Count MPV Gran % Lymph % (Auto) [place] % (Auto) Eos % (Auto) Baso % (Auto) Gran # Lymph # (Auto) [place] # (Auto) Eos # (Auto) Baso # (Auto) ESR Sodium 138 Potassium 4.0 Chloride 106 Carbon Dioxide 17 L Anion Gap 19 BUN 12 Creatinine 1.4 H Est GFR ( Amer) 49 Est GFR (Non-Af Amer) 40 POC Glucose (mg/dL) 240 H Random Glucose 208 H Calcium 8.9 Magnesium 2.3 H Total Bilirubin 0.5 AST 46 H ALT 40 Alkaline Phosphatase 84 Troponin I < 0.01 Total Protein 7.6 Albumin 4.1 Globulin 3.4 Albumin/Globulin Ratio 1.2 Beta HCG, Quant Urine Color Urine Appearance Urine pH Ur Specific [place] Urine Protein Urine Glucose (UA) Urine Ketones Urine Blood Urine Nitrate Urine Bilirubin Urine Urobilinogen Ur Leukocyte Esterase Urine RBC Urine WBC Ur Epithelial Cells Urine Bacteria Ur Random Sodium Salicylates < 1 L Urine Opiates Screen Urine Methadone Screen Acetaminophen < 10.0 L Ur Barbiturates Screen Ur Phencyclidine Scrn Ur Amphetamines Screen U Benzodiazepines Scrn U Oth Cocaine Metabols U Cannabinoids Screen Alcohol, Quantitative 09/12/18 09/12/18 09/12/18 17:39 17:39 17:39 WBC 15.8 H RBC 5.30 Hgb 14.4 Hct 42.8 MCV 80.8 MCH 27.2 MCHC 33.6 RDW 15.8 H Plt Count 371 MPV 9.4 Gran % 46.7 L Lymph % (Auto) 47.6 H [place] % (Auto) 3.2 Eos % (Auto) 2.3 Baso % (Auto) 0.2 Gran # 7.37 H Lymph # (Auto) 7.5 H [place] # (Auto) 0.5 Eos # (Auto) 0.4 Baso # (Auto) 0.03 ESR 15 Sodium Potassium Chloride Carbon Dioxide Anion Gap BUN Creatinine Est GFR ( Amer) Est GFR (Non-Af Amer) POC Glucose (mg/dL) Random Glucose Calcium Magnesium Total Bilirubin AST ALT Alkaline Phosphatase Troponin I Total Protein Albumin Globulin Albumin/Globulin Ratio Beta HCG, Quant < 2.39 Urine Color Urine Appearance Urine pH Ur Specific [place] Urine Protein Urine Glucose (UA) Urine Ketones Urine Blood Urine Nitrate Urine Bilirubin Urine Urobilinogen Ur Leukocyte Esterase Urine RBC Urine WBC Ur Epithelial Cells Urine Bacteria Ur Random Sodium Salicylates Urine Opiates Screen Urine Methadone Screen Acetaminophen Ur Barbiturates Screen Ur Phencyclidine Scrn Ur Amphetamines Screen U Benzodiazepines Scrn U Oth Cocaine Metabols U Cannabinoids Screen Alcohol, Quantitative < 10 09/12/18 09/12/18 09/12/18 18:19 18:19 18:19 WBC RBC Hgb Hct MCV MCH MCHC RDW Plt Count MPV Gran % Lymph % (Auto) [place] % (Auto) Eos % (Auto) Baso % (Auto) Gran # Lymph # (Auto) [place] # (Auto) Eos # (Auto) Baso # (Auto) ESR Sodium Potassium Chloride Carbon Dioxide Anion Gap BUN Creatinine Est GFR ( Amer) Est GFR (Non-Af Amer) POC Glucose (mg/dL) Random Glucose Calcium Magnesium Total Bilirubin AST ALT Alkaline Phosphatase Troponin I Total Protein Albumin Globulin Albumin/Globulin Ratio Beta HCG, Quant Urine Color Yellow Urine Appearance Sl cloudy Urine pH 6.0 Ur Specific [place] >= 1.030 Urine Protein 100 H Urine Glucose (UA) Negative Urine Ketones Negative Urine Blood Negative Urine Nitrate Negative Urine Bilirubin Negative Urine Urobilinogen 0.2 Ur Leukocyte Esterase Negative Urine RBC Negative Urine WBC 5 - 10 Ur Epithelial Cells 4 - 5 Urine Bacteria Mod Ur Random Sodium 20 Salicylates Urine Opiates Screen Positive H Urine Methadone Screen Negative Acetaminophen Ur Barbiturates Screen Negative Ur Phencyclidine Scrn Negative Ur Amphetamines Screen Negative U Benzodiazepines Scrn Negative U Oth Cocaine Metabols Negative U Cannabinoids Screen Negative Alcohol, Quantitative Attending/Attestation - Attestation I have personally seen and examined this patient.: Yes I have fully participated in the care of the patient.: Yes I have reviewed all pertinent clinical information: Yes Notes (Text): 09/13/18 06:53 Patient was seen when she was in the ER. Agree with history, physical examination, assessment and plan.
[2018-09-13 07:40] LABS: BASO # 0.03 K/mm3 (0.0-2.0); BASO % 0.2 % (0.0-3.0); EOS # 0.3 (0.0-0.7); EOS % 2.5 % (1.5-5.0); GRAN # 9.83 (1.4-6.5); GRAN % 74.2 % (50.0-68.0); LYMPH # 2.3 (1.2-3.4); LYMPH % 17.6 % (22.0-35.0); MEAN CELL VOLUME 78.6 fl (80.0-105.0); MEAN CORPUSCULAR HEMOGLOBIN 25.8 pg (25.0-35.0); MEAN CORPUSCULAR HGB CONC 32.8 g/dl (31.0-37.0); MEAN PLATELET VOLUME 9.3 fl (7.0-11.0); MONO # 0.7 (0.1-0.6); MONO % 5.5 % (1.0-6.0); RBC 4.58 10^6/uL (3.5-6.1); RED CELL DISTRIBUTION WIDTH 15.9 % (11.5-14.5); WHITE BLOOD COUNT 13.3 10^3/uL (4.5-11.0)
[2018-09-13 07:57] LABS: HEMOGLOBIN 11.8 g/dL (12.0-16.0)
[2018-09-13 08:17] LABS: ALB/GLOB RATIO 1.1 (1.1-1.8); ALBUMIN 3.1 g/dL (3.0-4.8); ALT/SGPT 42 U/L (7-56); AST/SGOT 44 U/L (14-36); BLOOD UREA NITROGEN 11 mg/dL (7-21); CALCIUM 7.7 mg/dL (8.4-10.5); GFR NON-AFRICAN AMERICAN 59
[2018-09-13] MEDS ORDERED: Potassium Chloride 20 mEq ER Tab PO STA (09:19)
[2018-09-13] MEDS: Enoxaparin 40 mg Syringe SC SCH (09:48)
[2018-09-13] MEDS: cefTRIAXone 1 gm 1 GM/100 ML BAG IVPB SCH (09:49)
--- NOTE | 2018-09-13 09:53 | RAD ---
HISTORY: vomitin/overdose COMPARISON: Chest x-ray performed 01/12/18 TECHNIQUE: Chest PA and lateral FINDINGS: Examination limited by habitus. LUNGS: Patchy bilateral lower lobe infiltrates. PLEURA: No significant pleural effusion identified. No definite pneumothorax . CARDIOVASCULAR: Cardiomegaly. OSSEOUS STRUCTURES: Mild degenerative changes. VISUALIZED UPPER ABDOMEN: Unremarkable. OTHER FINDINGS: None. IMPRESSION: Patchy bilateral lower lobe infiltrates. Correlate clinically for pneumonia or atelectasis. Study marked for PA review.
--- NOTE | 2018-09-13 09:55 | CT ---
Date of service: 09/12/2018 PROCEDURE: CT HEAD WITHOUT CONTRAST. HISTORY: injury? COMPARISON: None available. TECHNIQUE: Axial computed tomography images were obtained through the head/brain without intravenous contrast. Radiation dose: Total exam DLP = 984.0 mGy-cm. This CT exam was performed using one or more of the following dose reduction techniques: Automated exposure control, adjustment of the mA and/or kV according to patient size, and/or use of iterative reconstruction technique. FINDINGS: Streak artifact from the patient's left earring. HEMORRHAGE: No intracranial hemorrhage. BRAIN: No mass effect or edema. No atrophy or chronic microvascular ischemic changes. VENTRICLES: No hydrocephalus. CALVARIUM: Unremarkable. PARANASAL SINUSES: Unremarkable as visualized. No significant inflammatory changes. MASTOID AIR CELLS: Unremarkable as visualized. No inflammatory changes. OTHER FINDINGS: None. IMPRESSION: No acute intracranial pathology identified. Preliminary impression was provided by [employer].
[2018-09-13] MEDS ORDERED: Azithromycin 500MG/NS 250ml 500 MG/250 ML BAG IVPB SCH (10:00)
--- NOTE | 2018-09-13 11:36 | CP.PCM.PN ---
<Efren Gutierrez - Last Filed: 09/13/18 16:47> Subjective - Date & Time of Evaluation Date of Evaluation: 09/13/18 Time of Evaluation: 08:00 - Subjective Subjective: Efren Gutierrez, PGY-1 Progress Note for Hospitalist Service Patient seen and evaluated at bedside. Patient denies chest pain, shortness of breath, palpitations. Patient states she snorted two large bags of heroin, which she does, to some extent, on a daily basis. Patient states if she goes home, she can not be sure that she will hurt herself. Objective - Vital Signs/Intake and Output Vital Signs (last 24 hours): Temp Pulse Resp BP Pulse Ox 98.1 F 68 20 116/75 96 09/13/18 08:30 09/13/18 09:51 09/13/18 08:30 09/13/18 09:51 09/13/18 08:30 - Medications Medications: Current Medications Amlodipine Besylate (Norvasc) 10 mg PO DAILY IVY Last Admin: 09/13/18 09:51 Dose: 10 mg Clonazepam (Klonopin) 2 mg PO BID IVY; Protocol Clonidine HCl (Catapres) 0.1 mg PO TID IVY Last Admin: 09/13/18 09:51 Dose: 0.1 mg Diphenhydramine HCl (Benadryl) 25 mg PO Q6 IVY Last Admin: 09/13/18 05:21 Dose: 25 mg Enoxaparin Sodium (Lovenox) 40 mg SC DAILY IVY; Protocol Last Admin: 09/13/18 09:48 Dose: 40 mg Sodium Chloride (Sodium Chloride 0.9%) 1,000 mls @ 100 mls/hr IV .Q10H IVY Last Admin: 09/12/18 18:03 Dose: 100 mls/hr Sodium Chloride (Sodium Chloride 0.9%) 1,000 mls @ 125 mls/hr IV .Q8H IVY Last Admin: 09/12/18 23:48 Dose: 125 mls/hr Azithromycin (Zithromax 500mg In Ns) 500 mg in 250 mls @ 167 mls/hr IVPB DAILY IVY; Protocol Last Admin: 09/13/18 09:50 Dose: 167 mls/hr Ceftriaxone Sodium (Rocephin 1 Gram Ivpb) 1 gm in 100 mls @ 100 mls/hr IVPB DAILY IVY; Protocol Last Admin: 09/13/18 09:49 Dose: 100 mls/hr Nicotine (Nicoderm Cq) 1 patch TD DAILY IVY Last Admin: 09/13/18 09:51 Dose: 1 patch Ondansetron HCl (Zofran Inj) 4 mg IVP Q4H PRN PRN Reason: Nausea/Vomiting Pantoprazole Sodium (Protonix Inj) 40 mg IVP DAILY IVY Last Admin: 09/13/18 09:49 Dose: 40 mg - Labs Labs: 09/13/18 07:00 09/13/18 07:00 - Additional Findings Additional findings: - Constitutional Appears: No Acute Distress - Head Exam Head Exam: ATRAUMATIC, NORMOCEPHALIC - Eye Exam Eye Exam: EOMI, Normal appearance, PERRL - ENT Exam ENT Exam: Mucous Membranes Moist - Respiratory Exam Respiratory Exam: Clear to Auscultation Bilateral, NORMAL BREATHING PATTERN. absent: Accessory Muscle Use, Wheezes, Respiratory Distress - Cardiovascular Exam Cardiovascular Exam: RRR, +S1, +S2. absent: Diastolic murmur, Systolic Murmur - GI/Abdominal Exam GI & Abdominal Exam: Normal Bowel Sounds, Soft - Extremities Exam Extremities exam: Positive for: full ROM, pedal pulses present. Negative for: calf tenderness, pedal edema - Neurological Exam Neurological exam: Oriented x3 - Psychiatric Exam Psychiatric exam: Normal Affect, Depressed Mood, Suicidal Ideations - Skin Skin Exam: Dry, Normal Color, Warm Assessment and Plan - Assessment and Plan (Free Text) Assessment: Pt is 48 yo female, with a PMH of HTN, opiate abuse/ overdose, depression, anxiety who presents via EMS after heroin overdose. Plan: Suicidial Ideations 1:1 sitter ordered Psych eval requested - Dr. Fernandes - recs appreciated Heroin Overdose - clonidine 0.1 TID - fall precautions - seizure precautions - benadryl 25 PO q6h - UDS + for opiates Aspiration PNA - Flagyl q8 and Rocephin - trend improving leukocytosis Hypokalemia repleted continue to monitor in AM MAGNOLIA - IVF NS - random CR - Urine Na 20 HTN - restart home amlodipine 10 History of Goiter - TSH Depression/ Anxiety - restart home klonopin 2mg BID Ppx/ Diet - pantoprazole - lovenox - regular diet Patient seen, case reviewed and plan approved by Dr. Medina. Efren Gutierrez, PGY-1 <Sherly Medina - Last Filed: 09/14/18 16:47> Objective - Vital Signs/Intake and Output Vital Signs (last 24 hours): Temp Pulse Resp BP Pulse Ox 98.6 F 66 20 130/86 97 09/14/18 06:00 09/14/18 14:18 09/14/18 06:00 09/14/18 14:18 09/14/18 09:20 - Medications Medications: Current Medications Amlodipine Besylate (Norvasc) 10 mg PO DAILY IVY Last Admin: 09/14/18 09:31 Dose: 10 mg Clonazepam (Klonopin) 2 mg PO BID IVY; Protocol Last Admin: 09/14/18 09:29 Dose: 2 mg Clonidine HCl (Catapres) 0.1 mg PO TID IVY Last Admin: 09/14/18 14:18 Dose: 0.1 mg Diphenhydramine HCl (Benadryl) 25 mg PO Q6 IVY Last Admin: 09/14/18 13:50 Dose: Not Given Enoxaparin Sodium (Lovenox) 40 mg SC DAILY IVY; Protocol Last Admin: 09/14/18 09:32 Dose: 40 mg Sodium Chloride (Sodium Chloride 0.9%) 1,000 mls @ 100 mls/hr IV .Q10H IVY Last Admin: 09/14/18 11:40 Dose: Not Given Sodium Chloride (Sodium Chloride 0.9%) 1,000 mls @ 125 mls/hr IV .Q8H IVY Last Admin: 09/14/18 14:44 Dose: Not Given Ceftriaxone Sodium (Rocephin 1 Gram Ivpb) 1 gm in 100 mls @ 100 mls/hr IVPB DAILY IVY; Protocol Last Admin: 09/14/18 09:33 Dose: 100 mls/hr Metronidazole (Flagyl) 500 mg in 100 mls @ 100 mls/hr IVPB Q8 IVY; Protocol Last Admin: 09/14/18 14:18 Dose: 100 mls/hr Nicotine (Nicoderm Cq) 1 patch TD DAILY IVY Last Admin: 09/14/18 09:34 Dose: 1 patch Ondansetron HCl (Zofran Inj) 4 mg IVP Q4H PRN PRN Reason: Nausea/Vomiting Pantoprazole Sodium (Protonix Ec Tab) 40 mg PO 0600 IVY Last Admin: 09/14/18 05:38 Dose: 40 mg - Labs Labs: 09/14/18 07:10 09/14/18 07:10 Attending/Attestation - Attestation I have personally seen and examined this patient.: Yes I have fully participated in the care of the patient.: Yes I have reviewed all pertinent clinical information, including history, physical exam and plan: Yes Notes (Text): 09/14/18 16:47 Medical record note made by the resident after discussion with my direction and input after the patient was personally seen and examined by me. I have reviewed the chart and agree that the record accurately reflects by personal performance of the history, physical exam, data review, and medical decision-making, in the course for the patient. I have also personally directed the plan of care.
[2018-09-13] MEDS: metroNIDAZOLE IV 500 mg/100 ml 500 MG/100 ML BAG IVPB SCH ×2 (18:44→21:50)
--- NOTE | 2018-09-13 18:53 | CARD ---
APPROVED REPORT Date of service: 09/12/2018 EKG Measurement Heart [id number] <Conclusion> Normal sinus rhythm Minimal voltage criteria for LVH, may be normal variant Poor R wave progression Abnormal ECG
[2018-09-13] MEDS: Sodium Chloride 0.9% 1,000 ML IV SCH (22:57)
[2018-09-14] MEDS: metroNIDAZOLE IV 500 mg/100 ml 500 MG/100 ML BAG IVPB SCH ×2 (05:38→14:18)
[2018-09-14] MEDS ORDERED: Pantoprazole 40 mg EC Tab PO SCH (06:00)
[2018-09-14] MEDS: Sodium Chloride 0.9% 1,000 ML IV SCH ×3 (07:01→14:44)
[2018-09-14 07:36] LABS: BASO # 0.03 K/mm3 (0.0-2.0); BASO % 0.3 % (0.0-3.0); EOS # 0.5 (0.0-0.7); EOS % 5.3 % (1.5-5.0); GRAN # 6.24 (1.4-6.5); GRAN % 63.3 % (50.0-68.0); HEMOGLOBIN 12.1 g/dL (12.0-16.0); LYMPH # 2.6 (1.2-3.4); LYMPH % 26.2 % (22.0-35.0); MEAN CELL VOLUME 78.3 fl (80.0-105.0); MEAN CORPUSCULAR HEMOGLOBIN 26.2 pg (25.0-35.0); MEAN CORPUSCULAR HGB CONC 33.5 g/dl (31.0-37.0); MONO # 0.5 (0.1-0.6); MONO % 4.9 % (1.0-6.0); RBC 4.61 10^6/uL (3.5-6.1); RED CELL DISTRIBUTION WIDTH 15.7 % (11.5-14.5); WHITE BLOOD COUNT 9.9 10^3/uL (4.5-11.0)
[2018-09-14 07:49] LABS: ALB/GLOB RATIO 1.1 (1.1-1.8); ALBUMIN 3.3 g/dL (3.0-4.8); ALT/SGPT 38 U/L (7-56); AST/SGOT 25 U/L (14-36); BLOOD UREA NITROGEN 8 mg/dL (7-21); CALCIUM 8.3 mg/dL (8.4-10.5); GFR NON-AFRICAN AMERICAN > 60
[2018-09-14 08:44] VITALS: RESP 20; TEMP 98.6; O2SAT 97
[2018-09-14] MEDS: Enoxaparin 40 mg Syringe SC SCH (09:32)
[2018-09-14] MEDS: cefTRIAXone 1 gm 1 GM/100 ML BAG IVPB SCH (09:33)
[2018-09-14 14:19] VITALS: BP 130/86; PULSE 66
--- NOTE | 2018-09-14 14:30 | CON ---
DATE: 09/14/2018 HISTORY OF PRESENT ILLNESS: The patient is a 48-year-old single female with a history of depression, anxiety and opioid dependency for at least 20 years who is being treated on the medical floor after she presented to the ER via EMS, status post accidentally overdosing on heroin. Psychiatrist is consulted because the patient made a statement about not feeling safe, being discharged and this statement was considered to be suicidal. I met with patient at bedside and she is calm, cooperative with good eye contact. She is well oriented to month, year, location and circumstances. The patient appears to be quite forthcoming about her addiction and her current psychiatric symptoms. The patient reports that she does get depressed from time to time; however, regarding the comment that she made, she was in the middle of self about her own overdose, and she did feel that if she was discharged, she would not be safe because she was still very ill and not feeling medically well enough. The patient strongly denies having any suicidal thoughts, and indicates that besides her heroin dependency, she did function fairly well and has been taking medications that involve the Topamax, Vistaril and Klonopin as prescribed by her railroad mechanic. She denies taking more than prescribed. The patient is hopeful about the future. She presents as coherent and her responses are consistent and relevant to questioning. Denies any perceptual disturbance and delusions are not elicited. There have been no major behavioral issues on the unit either. Her insight and judgement are considered to be fair at this point. Vital signs are not reviewed by this provider. RELEVANT PSYCHIATRIC MEDICATIONS ON UNIT: Klonopin 2 mg p.o. b.i.d. PSYCHIATRIC HISTORY: The patient indicates that she has been in and out of outpatient treatment, last followup with an actual psychiatrist was about a year ago. Currently, she is being prescribed Cymbalta, Topamax, Vistaril p.r.n. and Klonopin by her railroad mechanic, and she has been taking the medications as prescribed and she feels they are beneficial. The patient denies any prior suicide attempts, but does indicate that she has had accidental overdoses on heroin. The patient did have a hospitalization in 2014 at [facility] because she was depressed, this was for 5 days. SOCIAL HISTORY: The patient recently moved from [place], [place]. She was born and raised in [place]. She is single. She has two adult children. She generally stays at her friend's house. She has a 20-year history of heroin and opioid dependency, though she was 10 years clean, she relapsed about 8 years ago and she still hopes to maintain sobriety. IMPRESSION: Opioid dependency, severe; opioid withdrawal; substance-induced mood disorder; depression and anxiety by history. RECOMMENDATIONS: At this time, the patient would like to continue with medications prescribed by her railroad mechanic and I recommend that her primary team determine these medications to restart them. She denies having any suicidal thoughts. She is quite coherent and there are no acute psychiatric issues except for the sequelae of overdosing on heroin, which admittedly can be quite stressful. The patient was never suicidal. She was upset with herself. She should be given referrals for outpatient mental health treatment as well as NA facilities. I strongly recommend the patient follow up with the mental health provider. I also reviewed the dangerousness of taking benzodiazepines and heroin together as they can cause respiratory depression and and she already says she is quite aware of this. I also reviewed treatment options such as naltrexone; however, she is not motivated to start this intervention at this time. Psychiatry will sign off at this time. Please re-consult p.r.n. If there are any new issues, one-to-one may be discontinued. Connie White MD
--- NOTE | 2018-09-14 14:52 | CP.PCM.DIS ---
<Heather Samuel - Last Filed: 09/14/18 14:46> Provider - Provider Date of Admission: 09/12/18 19:42 Attending physician: Sherly Medina MD Primary care physician: Jacitna Manzano DO Consults: 09/13/18 10:15 Psychiatry Consult Routine Comment: Consulting Provider: Dena Barth Consulting Physician: Dena Barth Reason for Consult: ? suicidal intent, Heroin O/D Time Spent in preparation of Discharge (in minutes): 35 Hospital Course - Lab Results Lab Results: Micro Results 09/12/18 18:15 Urine,Clean Catch Urine Culture - Final No Growth (<1,000 CFU/ML) 09/12/18 22:00 Blood-Venous Blood Culture - Preliminary NO GROWTH AFTER 24 HOURS 09/12/18 22:49 Blood-Venous Blood Culture - Preliminary NO GROWTH AFTER 24 HOURS 09/13/18 12:55 Stool C. difficile Antigen & Toxins A,B - Final Most Recent Lab Values WBC 9.9 10^3/uL (4.5-11.0) D 09/14/18 07:10 RBC 4.61 10^6/uL (3.5-6.1) 09/14/18 07:10 Hgb 12.1 g/dL (12.0-16.0) 09/14/18 07:10 Hct 36.1 % (36.0-48.0) 09/14/18 07:10 MCV 78.3 fl (80.0-105.0) L 09/14/18 07:10 MCH 26.2 pg (25.0-35.0) 09/14/18 07:10 MCHC 33.5 g/dl (31.0-37.0) 09/14/18 07:10 RDW 15.7 % (11.5-14.5) H 09/14/18 07:10 Plt Count 276 10^3/uL (120.0-450.0) 09/14/18 07:10 MPV 9.0 fl (7.0-11.0) 09/14/18 07:10 Gran % 63.3 % (50.0-68.0) 09/14/18 07:10 Lymph % (Auto) 26.2 % (22.0-35.0) 09/14/18 07:10 [place] % (Auto) 4.9 % (1.0-6.0) 09/14/18 07:10 Eos % (Auto) 5.3 % (1.5-5.0) H 09/14/18 07:10 Baso % (Auto) 0.3 % (0.0-3.0) 09/14/18 07:10 Gran # 6.24 (1.4-6.5) 09/14/18 07:10 Lymph # (Auto) 2.6 (1.2-3.4) 09/14/18 07:10 [place] # (Auto) 0.5 (0.1-0.6) 09/14/18 07:10 Eos # (Auto) 0.5 (0.0-0.7) 09/14/18 07:10 Baso # (Auto) 0.03 K/mm3 (0.0-2.0) 09/14/18 07:10 ESR 15 mm/hr (0.0-20.0) 09/12/18 17:39 Sodium 139 mmol/L (132-148) 09/14/18 07:10 Potassium 4.1 mmol/L (3.6-5.0) 09/14/18 07:10 Chloride 112 mmol/L (98-107) H 09/14/18 07:10 Carbon Dioxide 23 mmol/L (21-33) 09/14/18 07:10 Anion Gap 7 (10-20) L 09/14/18 07:10 BUN 8 mg/dL (7-21) 09/14/18 07:10 Creatinine 0.8 mg/dl (0.7-1.2) 09/14/18 07:10 Est GFR ( Amer) > 60 09/14/18 07:10 Est GFR (Non-Af Amer) > 60 09/14/18 07:10 POC Glucose (mg/dL) 240 mg/dL (65-110) H 09/12/18 17:30 Random Glucose 101 mg/dL (70-110) 09/14/18 07:10 Calcium 8.3 mg/dL (8.4-10.5) L 09/14/18 07:10 Magnesium 2.3 mg/dL (1.7-2.2) H 09/12/18 17:39 Total Bilirubin 0.3 mg/dL (0.2-1.3) 09/14/18 07:10 AST 25 U/L (14-36) 09/14/18 07:10 ALT 38 U/L (7-56) 09/14/18 07:10 Alkaline Phosphatase 74 U/L (38-126) 09/14/18 07:10 Troponin I < 0.01 ng/mL 09/12/18 17:39 C-React Prot High Sens 13.66 mg/L (1.00-3.00) H 09/13/18 07:00 Total Protein 6.3 g/dL (5.8-8.3) 09/14/18 07:10 Albumin 3.3 g/dL (3.0-4.8) 09/14/18 07:10 Globulin 3.0 gm/dL 09/14/18 07:10 Albumin/Globulin Ratio 1.1 (1.1-1.8) 09/14/18 07:10 Procalcitonin 0.29 NG/ML (0.19-0.49) 09/13/18 07:00 TSH 3rd Generation 1.29 mIU/mL (0.46-4.68) 09/13/18 07:00 Beta HCG, Quant < 2.39 mIU/mL (0-6.15) 09/12/18 17:39 Urine Color Yellow (YELLOW) 09/12/18 18:19 Urine Appearance Sl cloudy (CLEAR) 09/12/18 18:19 Urine pH 6.0 (4.7-8.0) 09/12/18 18:19 Ur Specific Te[place]y >= 1.030 (1.005-1.035) 09/12/18 18:19 Urine Protein 100 mg/dL (<30 mg/dL) H 09/12/18 18:19 Urine Glucose (UA) Negative mg/dL (NEGATIVE) 09/12/18 18: Urine Ketones Negative mg/dL (NEGATIVE) 09/12/18 18: Urine Blood Negative (NEGATIVE) 09/12/18 18:19 Urine Nitrate Negative (NEGATIVE) 09/12/18 18: Urine Bilirubin Negative (NEGATIVE) 09/12/18 18:19 Urine Urobilinogen 0.2 E.U./dL (<1 E.U./dL) 09/12/18 18:19 Ur Leukocyte Esterase Negative Comfort/uL (NEGATIVE) 09/12/18 18:19 Urine RBC Negative /hpf (0-2) 09/12/18 18:19 Urine WBC 5 - 10 /hpf (0-6) 18 18:19 Ur Epithelial Cells 4 - 5 /hpf (0-5) 09/12/18 18:19 Urine Bacteria Mod (NEG) 09/12/18 18:19 Ur Random Sodium 20 meq/L 09/12/18 18:19 Salicylates < 1 mg/dL (2.0-20.0) L 09/12/18 17:39 Urine Opiates Screen Positive (NEGATIVE) H 09/12/18 18:19 Urine Methadone Screen Negative (NEGATIVE) 09/12/18 18:19 Acetaminophen < 10.0 ug/ml (10.0-20.0) L 09/12/18 17:39 Ur Barbiturates Screen Negative (NEGATIVE) 09/12/18 18:19 Ur Phencyclidine Scrn Negative (NEGATIVE) 09/12/18 18:19 Ur Amphetamines Screen Negative (NEGATIVE) 09/12/18 18:19 U Benzodiazepines Scrn Negative (NEGATIVE) 09/12/18 18:19 U Oth Cocaine Metabols Negative (NEGATIVE) 09/12/18 18:19 U Cannabinoids Screen Negative (NEGATIVE) 09/12/18 18:19 Alcohol, Quantitative < 10 mg/dL (0-10) 09/12/18 17:39 - Hospital Course Hospital Course: Pt is 48 yo female with a PMH of HTN, opiate abuse/ overdose, depression, anxiety who presented via EMS after being found after "snorting 2 bags of heroi n." Pt stated she only remembers going home and going to the bathroom to use heroin. The next thing she remembered is waking up in the hospital after Narcan was administered. Pt stated she has been using heroin for the past 25 years, she stated she has overdosed approximately 6 times. Pt stated she was nauseous and vomited earlier. Pt denies chest pain, SOB, headache, visual changes, diaphoresis. During hospital course, psychiatry was consulted and 1:1 sitter was requested for suicidal ideation. UDS positive for opiates. Clonidine 0.1mg TID given for possible withdrawel. Benadryl 25mg q6 given as well. Patient treated for possible aspiration pneumonia with flagyl and rocephin and discharged on augmentin. Patient also noted to have hypokalemia initially which resolved after replacement. Patient had mild MAGNOLIA on presentation which resolved after fluids. Upon discharge, patient denied suicidal ideation as well as any hallucinations including command auditory/visual. Patient to follow up with Dr. White outpatient. Discharge Exam - Additional Findings Additional findings: - Constitutional Appears: No Acute Distress - Head Exam Head Exam: ATRAUMATIC, NORMOCEPHALIC - Eye Exam Eye Exam: EOMI, Normal appearance, PERRL - ENT Exam ENT Exam: Mucous Membranes Moist - Respiratory Exam Respiratory Exam: Clear to Auscultation Bilateral, NORMAL BREATHING PATTERN. absent: Accessory Muscle Use, Wheezes, Respiratory Distress - Cardiovascular Exam Cardiovascular Exam: RRR, +S1, +S2. absent: Systolic Murmur - GI/Abdominal Exam GI & Abdominal Exam: Normal Bowel Sounds, Soft - Extremities Exam Extremities exam: Positive for: full ROM, pedal pulses present. Negative for: calf tenderness, pedal edema - Neurological Exam Neurological exam: Oriented x3 - Psychiatric Exam Psychiatric exam: Denies Suicidal Ideations - Skin Skin Exam: Dry, Normal Color, Warm Discharge Plan - Discharge Medications Prescriptions: Amoxicillin/Clavulanate [Augmentin 875 MG-125 MG] 1 tab PO DAILY 7 Days #7 tab - Follow Up Plan Condition: STABLE Disposition: HOME/ ROUTINE Instructions: Pneumonia in Adults, Pneumococcal Conjugate Vaccine (13-Valent), Drug Abuse and Drug Addiction (DC), What You Should Know About Antibiotics, Influenza Virus Vaccine (Inactivated), Narcotic Overdose (DC), Urinary Tract Infection in Women (DC), Leukocytosis (DC) Additional Instructions: Please follow up with your primary care doctor within 3-5 days of discharge. Please follow up with [facility] Dr. White. Appointm ents can be made at [phone]. Please take augmentin (antibiotic) for 7 days. Please continue taking your home medications. Please return to the ED for any new or worsening symptoms. Referrals: Jacinta Manzano DO [Primary Care Provider] - Connie White MD [Staff Provider] - <Sherly Medina - Last Filed: 09/14/18 16:46> Provider - Provider Date of Admission: 09/12/18 19:42 Attending physician: Sherly Medina MD Primary care physician: Jacinta Manzano DO Consults: 09/13/18 10:15 Psychiatry Consult Routine Comment: Consulting Provider: Dena Barth Consulting Physician: Dena Barth Reason for Consult: ? suicidal intent, Heroin O/D Hospital Course - Lab Results Lab Results: Micro Results 09/12/18 18:15 Urine,Clean Catch Urine Culture - Final No Growth (<1,000 CFU/ML) 09/12/18 22:00 Blood-Venous Blood Culture - Preliminary NO GROWTH AFTER 24 HOURS 09/12/18 22:49 Blood-Venous Blood Culture - Preliminary NO GROWTH AFTER 24 HOURS 09/13/18 12:55 Stool C. difficile Antigen & Toxins A,B - Final Most Recent Lab Values WBC 9.9 10^3/uL (4.5-11.0) D 09/14/18 07:10 RBC 4.61 10^6/uL (3.5-6.1) 09/14/18 07:10 Hgb 12.1 g/dL (12.0-16.0) 09/14/18 07:10 Hct 36.1 % (36.0-48.0) 09/14/18 07:10 MCV 78.3 fl (80.0-105.0) L 09/14/18 07:10 MCH 26.2 pg (25.0-35.0) 09/14/18 07:10 MCHC 33.5 g/dl (31.0-37.0) 09/14/18 07:10 RDW 15.7 % (11.5-14.5) H 09/14/18 07:10 Plt Count 276 10^3/uL (120.0-450.0) 09/14/18 07:10 MPV 9.0 fl (7.0-11.0) 09/14/18 07:10 Gran % 63.3 % (50.0-68.0) 09/14/18 07:10 Lymph % (Auto) 26.2 % (22.0-35.0) 09/14/18 07:10 [place] % (Auto) 4.9 % (1.0-6.0) 09/14/18 07:10 Eos % (Auto) 5.3 % (1.5-5.0) H 09/14/18 07:10 Baso % (Auto) 0.3 % (0.0-3.0) 09/14/18 07:10 Gran # 6.24 (1.4-6.5) 09/14/18 07:10 Lymph # (Auto) 2.6 (1.2-3.4) 09/14/18 07:10 [place] # (Auto) 0.5 (0.1-0.6) 09/14/18 07:10 Eos # (Auto) 0.5 (0.0-0.7) 09/14/18 07:10 Baso # (Auto) 0.03 K/mm3 (0.0-2.0) 09/14/18 07:10 ESR 15 mm/hr (0.0-20.0) 09/12/18 17:39 Sodium 139 mmol/L (132-148) 09/14/18 07:10 Potassium 4.1 mmol/L (3.6-5.0) 09/14/18 07:10 Chloride 112 mmol/L (98-107) H 09/14/18 07:10 Carbon Dioxide 23 mmol/L (21-33) 09/14/18 07:10 Anion Gap 7 (10-20) L 09/14/18 07:10 BUN 8 mg/dL (7-21) 09/14/18 07:10 Creatinine 0.8 mg/dl (0.7-1.2) 09/14/18 07:10 Est GFR ( Amer) > 60 09/14/18 07:10 Est GFR (Non-Af Amer) > 60 09/14/18 07:10 POC Glucose (mg/dL) 240 mg/dL (65-110) H 09/12/18 17:30 Random Glucose 101 mg/dL (70-110) 09/14/18 07:10 Calcium 8.3 mg/dL (8.4-10.5) L 09/14/18 07:10 Magnesium 2.3 mg/dL (1.7-2.2) H 09/12/18 17:39 Total Bilirubin 0.3 mg/dL (0.2-1.3) 09/14/18 07:10 AST 25 U/L (14-36) 09/14/18 07:10 ALT 38 U/L (7-56) 09/14/18 07:10 Alkaline Phosphatase 74 U/L (38-126) 09/14/18 07:10 Troponin I < 0.01 ng/mL 09/12/18 17:39 C-React Prot High Sens 13.66 mg/L (1.00-3.00) H 09/13/18 07:00 Total Protein 6.3 g/dL (5.8-8.3) 09/14/18 07:10 Albumin 3.3 g/dL (3.0-4.8) 09/14/18 07:10 Globulin 3.0 gm/dL 09/14/18 07:10 Albumin/Globulin Ratio 1.1 (1.1-1.8) 09/14/18 07:10 Procalcitonin 0.29 NG/ML (0.19-0.49) 09/13/18 07:00 TSH 3rd Generation 1.29 mIU/mL (0.46-4.68) 09/13/18 07:00 Beta HCG, Quant < 2.39 mIU/mL (0-6.15) 09/12/18 17:39 Urine Color Yellow (YELLOW) 09/12/18 18:19 Urine Appearance Sl cloudy (CLEAR) 09/12/18 18:19 Urine pH 6.0 (4.7-8.0) 09/12/18 18:19 Ur Specific [place] >= 1.030 (1.005-1.035) 09/12/18 18:19 Urine Protein 100 mg/dL (<30 mg/dL) H 09/12/18 18:19 Urine Glucose (UA) Negative mg/dL (NEGATIVE) 09/12/18 18:19 Urine Ketones Negative mg/dL (NEGATIVE) 09/12/18 18:19 Urine Blood Negative (NEGATIVE) 09/12/18 18:19 Urine Nitrate Negative (NEGATIVE) 09/12/18 18: Urine Bilirubin Negative (NEGATIVE) 09/12/18 18:19 Urine Urobilinogen 0.2 E.U./dL (<1 E.U./dL) 09/12/18 18:19 Ur Leukocyte Esterase Negative Comfort/uL (NEGATIVE) 09/12/18 18:19 Urine RBC Negative /hpf (0-2) 09/12/18 18:19 Urine WBC 5 - 10 /hpf (0-6) 09/12/18 18:19 Ur Epithelial Cells 4 - 5 /hpf (0-5) 09/12/18 18:19 Urine Bacteria Mod (NEG) 09/12/18 18:19 Ur Random Sodium 20 meq/L 09/12/18 18:19 Salicylates < 1 mg/dL (2.0-20.0) L 09/12/18 17:39 Urine Opiates Screen Positive (NEGATIVE) H 09/12/18 18:19 Urine Methadone Screen Negative (NEGATIVE) 09/12/18 18:19 Acetaminophen < 10.0 ug/ml (10.0-20.0) L 09/12/18 17:39 Ur Barbiturates Screen Negative (NEGATIVE) 09/12/18 18:19 Ur Phencyclidine Scrn Negative (NEGATIVE) 09/12/18 18:19 Ur Amphetamines Screen Negative (NEGATIVE) 09/12/18 18:19 U Benzodiazepines Scrn Negative (NEGATIVE) 09/12/18 18:19 U Oth Cocaine Metabols Negative (NEGATIVE) 09/12/18 18:19 U Cannabinoids Screen Negative (NEGATIVE) 09/12/18 18:19 Alcohol, Quantitative < 10 mg/dL (0-10) 09/12/18 17:39 Attending/Attestation - Attestation I have personally seen and examined this patient.: Yes I have fully participated in the care of the patient.: Yes I have reviewed all pertinent clinical information, including history, physical exam and plan: Yes Notes (Text): 09/14/18 16:43 Medical record note made by the resident after discussion with my direction and input after the patient was personally seen and examined by me. I have reviewed the chart and agree that the record accurately reflects by personal performance of the history, physical exam, data review, and medical decision-making, in the course for the patient. I have also personally directed the plan of care 48 yrs old female with PMH of Drug abuse, Hepc was admitted with Heroin overdose and possible aspiration Pneumonia. Patient is alert,awake and oriented.She is afebrile and is on room air. She denies any suicidal ideation today. She has been evaluated by Psychiatry and is cleared . Issue of ongoing drug abuse was discussed in detail her. Patient will be discharged home and will follow up with PCP. Management plan was discussed in detail with patient. Education was provided.
== END 2018-09-14 16:49 | disposition home or self-care (01) ==
LOC: ED 17:19 → ERH 19:42 → 5RSO 21:33
PROVIDERS: ADMIT Internal Medicine; ATTEND Internal Medicine
DX: T40.1X1A Poisoning by heroin, accidental (unintentional), initial encounter (principal); J69.0 Pneumonitis due to inhalation of food and vomit; F11.23 Opioid dependence with withdrawal; N17.9 Acute kidney failure, unspecified; E87.6 Hypokalemia; I10 Essential (primary) hypertension; F32.9 Major depressive disorder, single episode, unspecified; F41.9 Anxiety disorder, unspecified; F19.94 Other psychoactive substance use, unspecified with psychoactive substance-induced mood disorder; K21.9 Gastro-esophageal reflux disease without esophagitis; F17.210 Nicotine dependence, cigarettes, uncomplicated
CPT/HCPCS: 36415; 70450; 71046; 80053; 80320; 80324; 80329; 80345; 80346; 80349; 80353; 80358; 80361; 81001; 82948; 83735; 83992; 84145; 84300; 84443; 84484; 84702; 85025; 85651; 86140; 87040; 87086; 87324; 93005; 96361; 96365; 96367; 96372; 96375; 96376; 99285; C9113; G0378; J0456; J0696; J1650; J1885; J2405; J7030